=== PATIENT | female | born 1965 | race African-American/Black ===

== ENCOUNTER 2024-11-29 03:21 | Emergency (ER) | payer OTHER, MEDICARE, SELFPAY ==
[2024-11-29 03:41] VITALS: BMI 49.8
[2024-11-29 03:49] VITALS: BP 156/96
--- NOTE | 2024-11-29 03:49 | ED.GENMED ---
History of Present Illness
<Estela Mix PA-C - Last Filed: 11/29/24 10:00>
General
Chief Complaint: Chest Pain
Source: patient
Exam Limitations: none
Time Seen by Provider: 11/29/24 03:32
Nursing documentation reviewed up to this point in time: agreed with
History of Present Illness
History of Present Illness:
This is a 59-year-old female with a past medical history of hypertension, hyperlipidemia, asthma, GERD, diabetes comes emergency room today with concerns of right sided upper abdominal pain radiating to the chest for the past few hours. Patient
reports that she was getting ready for bed and was washing her hair when she started develop a sharp pain in her right upper back. Patient reports that she tried to go to sleep but then the pain wrapped around to the front of her abdomen and she
states that the worst of the pain is under her right breast. Patient than started to develop nausea and vomiting as well, and states that she has a lot of belching. Patient denies any fevers or chills, any diarrhea or constipation. Patient denies
any burning with urination. Patient denies any contact with anyone sick. Patient denies any personal or family history of cardiac disease. Patient states that she has been feeling well past few days and this started suddenly. Patient denies any
redness or swelling in her legs, any recent long distance travel, any exogenous estrogen use, any recent surgeries or hospitalization. Patient states that she was told that she had gallstones in the past and was told that she should be evaluated if
she develops any pain in the upper abdomen. Patient had a tubal ligation in the past but denies any other history of intraabdominal surgeries.
Review of Systems
<Estela Mix PA-C - Last Filed: 11/29/24 10:00>
Review of Systems
All Other Systems: ROS reviewed and negative except as documented in HPI and ROS
Phy Exam
<Esteal Mix PA-C - Last Filed: 11/29/24 10:00>
Physical Exam
Physical Exam:
General: Patient is well appearing and in no acute distress; non-toxic
Skin: Warm and dry, no rashes or lesions
Head: Normocephalic, atraumatic
Eyes: Sclera non-icteric. EOMs intact.
Cardiac: Mild tachycardia noted otherwise regular rate and rhythm, no murmurs. Tenderness to palpation of the external chest wall.
Peripheral Vascular: No lower extremity swelling or edema, no calf tenderness bilaterally
Pulm: Normal respiratory effort, no wheezes, rales, or rhonchi
Abdomen: Right upper quadrant tenderness to palpation with guarding
Musculoskeletal: Tenderness to palpation under the right scapula, pain with range of motion of right shoulder
Neuro: CN II-XII intact, no focal neurologic deficits.
Psychiatric: Appropriate mood and affect.
Scores
<Estela Mix PA-C - Last Filed: 11/29/24 10:00>
Heart Score for Chest Pain Patients
STEMI patient?: No
History: Slightly or Non-Suspicious
ECG: Normal
Age: >45 - <65 years
Risk Factors: 1 or 2 Risk Factors
Troponin: </= Normal Limit
Heart Score for Chest Pain Patients: 2
Heart Score Risk: 2.5% MACE over next 6 weeks
Course
<Estela Mix PA-C - Last Filed: 11/29/24 10:00>
Orders/Labs/Results
Orders:
Orders
11/29/24 03:27
Electrocardiogram (*1) Urgent
Reason for Study: Chest Pain
11/29/24 03:28
EKG- Treatment ONCE
11/29/24 03:45
Complete Blood Count/With Diff Urgent
Comprehensive Metabolic Panel Urgent
Lipase Urgent
Troponin I Urgent
11/29/24 03:46
0.9% Sodium Chloride 500 ml [Nss] 500 ml IV BOLUS
Ketorolac [Toradol] 15 mg IV NOW STA
Ondansetron Injectable [Zofran] 4 mg IV NOW STA
US Abdomen Complete/Upper Urgent
Comment:
Reason For Exam: right upper quadrant pain
11/29/24 03:48
Test Result ONCE
11/29/24 04:09
Vital Signs- Treatment ONCE
Frequency: Once
11/29/24 04:27
EKG- Treatment ONCE
11/29/24 04:31
D-Dimer Urgent
HYDROmorphone [Dilaudid] 0.5 mg IV NOW STA
11/29/24 04:35
Famotidine [Pepcid] 20 mg IV NOW STA
Pantoprazole [Protonix IV] 40 mg IV NOW STA
11/29/24 05:28
, Urine Qualitative Screen [HCG, Urine Qualitative Screen] Urgent
Date Specimen was Collected: 11/29/24
Time Specimen was Collected: 05:21
Urinalysis Reflex To Culture Urgent
Date Specimen was Collected: 11/29/24
Time Specimen was Collected: 05:21
Urine Microscopic Reflex Cult Urgent
11/29/24 05:30
HYDROmorphone [Dilaudid] 0.5 mg IV NOW STA
11/29/24 05:40
Morphine Sulfate 2 mg IV NOW STA
11/29/24 06:11
Morphine Sulfate 2 mg IV NOW STA
11/29/24 06:15
Troponin I Urgent
11/29/24 06:25
Electrocardiogram (*1) Urgent
Reason for Study: Chest Pain
Abnormal Lab Results
11/29/24 11/29/24
03:45 05:28
Eosinophils % 6.8 H %
(0-6)
Glucose 176 H mg/dl
(70-99)
Urine Bacteria (Reflex) Few A
(Negative)
Urine Albumin (Reflex) 1+ A
(Neg - Trace)
11/29/24 03:45
11/29/24 03:45
Vital Signs
Initial and Last Documented VS:
Initial Vital Signs
Pulse Ox
98
11/29/24 03:41
Last Documented Vital Signs
Pulse Resp BP Pulse Ox
82 14 123/84 95
11/29/24 08:00 11/29/24 08:00 11/29/24 07:00 11/29/24 08:00
<Himanshu Caputo, DO - Last Filed: 11/29/24 05:44>
Orders/Labs/Results
Orders:
Orders
11/29/24 03:27
Electrocardiogram (*1) Urgent
Reason for Study: Chest Pain
11/29/24 03:28
EKG- Treatment ONCE
11/29/24 03:45
Complete Blood Count/With Diff Urgent
Comprehensive Metabolic Panel Urgent
Lipase Urgent
Troponin I Urgent
11/29/24 03:46
0.9% Sodium Chloride 500 ml [Nss] 500 ml IV BOLUS
Ketorolac [Toradol] 15 mg IV NOW STA
Ondansetron Injectable [Zofran] 4 mg IV NOW STA
US Abdomen Complete/Upper Urgent
Comment:
Reason For Exam: right upper quadrant pain
11/29/24 03:48
Test Result ONCE
11/29/24 04:09
Vital Signs- Treatment ONCE
Frequency: Once
11/29/24 04:27
EKG- Treatment ONCE
11/29/24 04:31
D-Dimer Urgent
HYDROmorphone [Dilaudid] 0.5 mg IV NOW STA
11/29/24 04:35
Famotidine [Pepcid] 20 mg IV NOW STA
Pantoprazole [Protonix IV] 40 mg IV NOW STA
11/29/24 05:28
, Urine Qualitative Screen [HCG, Urine Qualitative Screen] Urgent
Date Specimen was Collected: 11/29/24
Time Specimen was Collected: 05:21
Urinalysis Reflex To Culture Urgent
Date Specimen was Collected: 11/29/24
Time Specimen was Collected: 05:21
Urine Microscopic Reflex Cult Urgent
11/29/24 05:30
HYDROmorphone [Dilaudid] 0.5 mg IV NOW STA
11/29/24 05:40
Morphine Sulfate 2 mg IV NOW STA
11/29/24 06:11
Morphine Sulfate 2 mg IV NOW STA
11/29/24 06:15
Troponin I Urgent
11/29/24 06:25
Electrocardiogram (*1) Urgent
Reason for Study: Chest Pain
Abnormal Lab Results
11/29/24 11/29/24
03:45 05:28
Eosinophils % 6.8 H %
(0-6)
Glucose 176 H mg/dl
(70-99)
Urine Bacteria (Reflex) Few A
(Negative)
Urine Albumin (Reflex) 1+ A
(Neg - Trace)
11/29/24 03:45
11/29/24 03:45
Vital Signs
Initial and Last Documented VS:
Initial Vital Signs
Pulse Ox
98
11/29/24 03:41
Last Documented Vital Signs
Pulse Resp BP Pulse Ox
82 14 123/84 95
11/29/24 08:00 11/29/24 08:00 11/29/24 07:00 11/29/24 08:00
[place]olt;Estela Mix PA-C - Last Filed: 11/29/24 10:00>
MDM/Problems Addressed
Differential Diagnosis Includes:
ddx include ACS, acute cholecystitis, PE, gastritis, GERD
MDM/Problems Addressed:
History and physical exam concerning for biliary colic in light of nausea and vomiting, persistent pain, stones present on ultrasound. Did offer admission to patient, patient states that she would rather rest and home and follow up with general
surgery as an outpatient.
Did consider PE however pt not hypoxic, no longer tachycardic, d-dimer negative.
Did have a slight increase in troponin however in light of still wnl, normal repeat ecg, low concern for ACS, patient stable for discharge.
Chronic conditions affecting care:
htn, hlp, GERD, diabetes
<Estela Mix PA-C - Last Filed: 11/29/24 10:00>
*Pulse Oximetry
Patient hypoxic: no
*EKG
Interpreted by ED Provider?: Yes
EKG Intrepretation Date: 11/29/24
Interpretation: normal
Comparison EKG: no comparison EKG present
Heart Rate: 96
Rate: normal
Rhythm: sinus
[place]: normal axis
*Critical Care Note
Total Time (30-74mins, 75-104mins- exclusive of procedures): Not Applicable
Data Reviewed
Review of Other/Old Records Reveals: Records (No previous ER physician augmentation to review, no discharge summaries to review)
ED Attending Note
<Estela Mix PA-C - Last Filed: 11/29/24 10:00>
-
Portions of this chart may have been created with voice recognition software.� Occasional wrong word or��sound alike� substitutions may have occurred due to the inherent limitations of voice recognition software.
<Himanshu Caputo DO - Last Filed: 11/29/24 05:44>
ED Attending Note
Patient seen and examined by attending physician: Yes
ED Attending Note:
59-year-old female with right upper quadrant abdominal pain that began this morning while taking a shower. Patient denies fever, chills, nausea or vomiting. She states that she has had right upper quadrant pain in the past but this is more severe.
Patient was seen in conjunction with the PA . I have reviewed and agree with the history and treatment plan presented. On my independent physical exam, patient is awake, alert, and oriented x3. Right upper quadrant abdominal pain on exam. She
has no rigidity or guarding.
Discharge Plan
Departure
Patient Disposition: Home (Routine Discharge)
Date of Disposition: 11/29/24
Time of Disposition: 07:33
Patient with high blood pressure during this ER visit?: Yes
Condition: Good
Discharge Problem:
Biliary colic
Instructions: Gallstones - Discharge instructions, Chest Pain DCA Follow Up, BLOOD PRESSURE
Referrals:
Tony Mauro I., DO [Family Provider] -
Wilbur Mcmillan MD [Active] - Call in 1-3 days for appt
Activity Restrictions/Additional Instructions:
Your ultrasound shows gallstones. Please call the attached number to reschedule appointment with general surgery.
You should receive a call in a few days to schedule appointment to see cardiology.
PLEASE RETURN EMERGENCY DEPARTMENT SHOULD YOU DEVELOP ANY ACUTE WORSENING OF YOUR SYMPTOMS, INTRACTABLE NAUSEA OR VOMITING, FEVERS OR CHILLS, LIGHTHEADEDNESS, DIZZINESS, WEAKNESS IN ONE-SIDED BODY VERSUS OTHER, CONFUSION, OR ANY OTHER SIGNS OR
SYMPTOMS WORRISOME TO YOU.
Interventions
Interventions:
*Risk Screen - Suicide Last Done: 11/29/24 03:41
*General Assessment Last Done: 11/29/24 03:41
*Neglect/Abuse Screening Last Done: 11/29/24 03:41
*ED- Fall Risk Assessment Last Done: 11/29/24 03:41
*ED COVID-19 Vaccine History Last Done: 11/29/24 03:41
*Nursing Disposition Last Done: 11/29/24 08:11
[facility]-Hecpuf-Dggw[facility]iga Assessment Last Done: 11/29/24 03:41
ED- Cardiac Assessment Last Done: 11/29/24 03:41
Discharge Date and Time
Discharge Date/Time: 11/29/24 08:18
Print Language: FRISIAN
[2024-11-29] MEDS: TORADOL 15 MG IV (03:52)
[2024-11-29] MEDS: NSS 500 IV (03:53)
[2024-11-29] MEDS: ZOFRAN 4 MG IV (03:53)
[2024-11-29 03:58] LABS: % Basophils 0.4 % (0-2); % Eosinophils 6.8 % (0-6); % Immature Granulocytes 0.4 % (0-0.5); % Lymphocytes 22.5 % (20.5-51.1); % Monocytes 5.9 % (1.7-9.3); Absolute Eosinophils 0.5 10^3/uL (0-0.7); Absolute Lymphocytes 1.8 10^3/uL (1.2-3.4); Absolute Monocytes 0.5 10^3/uL (0.1-0.6); Absolute Neutrophils 5.1 10^3/uL (1.4-6.5); Hematocrit 42.4 % (37.0-47.0); Hemoglobin 14.7 g/dL (12.0-16.0); Mean Corp Hgb Conc. 34.7 g/dL (33.0-37.0); Mean Corpuscular Hgb 29.9 pg (27.0-31.0); Mean Corpuscular Volume 86.4 fL (81.0-99.0); Mean Platelet Volume 10.2 fL (7.4-10.4); Nucleated Red Blood Cells % 0 %; Platelet Count 272 10^3/uL (130-400); Red Blood Cell Count 4.91 10^6/uL (4.20-5.40); Red Cell Dist. Width 13.2 % (11.5-14.5); White Blood Cell Count 7.9 10^3/uL (4.8-10.8)
[2024-11-29 04:14] LABS: ALT (SGPT) 21 U/L (0-35); AST (SGOT) 21 U/L (14-36); Albumin 4.6 g/dl (3.5-5.0); Alkaline Phosphatase 99 U/L (38-126); Blood Urea Nitrogen 11 mg/dl (7-17); Calcium 10.1 mg/dl (8.4-10.2); Carbon Dioxide 26 mmol/L (22-30); Chloride 99 mmol/L (98-107); Estimated Creatinine Clearance > 125 ml/min; Glucose 176 mg/dl (70-99); Lipase 68 U/L (23-300); Potassium 4.5 mmol/L (3.5-5.1); Sodium 137 mmol/L (135-145); Total Bilirubin 0.9 mg/dl (0.2-1.3); Total Protein 8.2 g/dl (6.3-8.2); eGFR > 60.00
[2024-11-29 04:20] LABS: Troponin I 0.017 ng/ml
[2024-11-29 04:30] VITALS: BP 152/90
[2024-11-29] MEDS: PROTONIX IV 40 MG IV (04:38)
[2024-11-29] MEDS: PEPCID 20 MG IV (04:38)
[2024-11-29 05:10] LABS: D-Dimer 0.36 ug/mlFEU (0.00-0.50)
[2024-11-29 05:28] VITALS: BP 148/94
[2024-11-29] MEDS: MORPHINE SULFATE 2 MG IV ×2 (05:43→06:14)
[2024-11-29 05:52] LABS: HCG, Urine Qualitative Screen Negative
[2024-11-29 05:53] LABS: Urine Albumin 1+ (Neg - Trace); Urine Bilirubin Negative (Negative); Urine Character Clear (Clear); Urine Color Yellow; Urine Glucose Negative (Negative); Urine Ketone Negative (Negative); Urine Leukocyte Negative (Negative); Urine Nitrite Negative (Negative); Urine Occult Blood Negative (Negative); Urine Specific Gravity 1.015 (<1.030); Urine Urobilinogen Negative (Neg - 1+)
[2024-11-29 06:00] VITALS: BP 110/65
[2024-11-29 06:42] LABS: Urine Bacteria Few (Negative); Urine Red Blood Cell 0-2 /HPF (0-2); Urine White Cell 0-2 /HPF (0-5)
[2024-11-29 06:59] LABS: Troponin I 0.025 ng/ml
[2024-11-29 07:00] VITALS: BP 123/84
== END 2024-11-29 08:18 | disposition home or self-care (01) ==
LOC: EMR 03:21
PROVIDERS: Physician Assistant; EMERGENCY PHYSICIAN Student in an Organized Health Care Education/Training Program; FAMILY PHYSICIAN Internal Medicine
DX: K80.70 Calculus of gallbladder and bile duct without cholecystitis without obstruction (principal); I10 Essential (primary) hypertension; E78.5 Hyperlipidemia, unspecified; J45.909 Unspecified asthma, uncomplicated; K21.9 Gastro-esophageal reflux disease without esophagitis; E11.9 Type 2 diabetes mellitus without complications; Z98.51 Tubal ligation status
CPT/HCPCS: 96374; 96375; 96376; 96361; 99284; 76700; 80053; 81003; 81015; 81025; 83690; 84484; 85025; 85379; 93005